=== PATIENT | female | born 1930 | race Caucasian/White ===

== ENCOUNTER → 2020-02-15 09:44 | Outpatient (CLI) | payer MEDICARE, OTHER ==
[2012-09-01 09:12] VITALS: BMI 29.0
--- NOTE | 2020-02-17 08:35 | EC ---
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 Ao 209 cm/sec RVOT 70 cm/sec RA cm/sec PA 108 cm/sec AV Gradient Peak 17.55mmHg AV Mean 9.67 mmHg AV Area 1.2 cm MV Gradient Peak 6.09 mmHg MV Mean 1.81 mmHg MV Area cm COMMENTS: Trail Maintenance Worker: 2 AVA HARRINGTON Geospatial Intelligence Analyst: 3 Dr. Sullivan TAPE# PACS Pericardial Effusion N DATE OF SERVICE: Adequate 2D, color flow imaging, spectral Doppler, and M-Mode. LVH is present. LV internal dimensions are normal. Wall motion is normal. EF is greater than or equal to 55%. Aortic valve is calcified with mild restriction of leaflet motion. Peak gradient of 17 mmHg putting this in mild range. Trace AI as well. Left atrium is dilated at 5.0 cm. Mitral valve shows no prolapse. Moderate MR. Right-sided chambers are grossly normal. Moderate TR. RV systolic pressure is estimated greater than or equal to 67 mmHg via the ECHOCARDIOGRAM REPORT [id number] [place] continuity equation. TRANSINT:[id number] Voice Confirmation ID: [id number] DOCUMENT ID: [id number] ERICA NIXON MD at 0835 CC: [id number] DICTATION DATE: 02/16/20 0842 ARTIFICIAL CANDY MAKER: 02/16/20 1105 DEP CLI 02/15/20 [id number] [place] [address]
== END | disposition home or self-care (01) ==
LOC: D.HCCECHO 09:44
PROVIDERS: ATTEND Internal Medicine Interventional Cardiology
DX: I25.10 Atherosclerotic heart disease of native coronary artery without angina pectoris (principal)